=== PATIENT | female | born 1980 | race Caucasian/White ===

== ENCOUNTER 2019-07-26 21:36 | Inpatient (IN) | payer SELFPAY ==
[2019-07-26 21:51] VITALS: BMI 22.8
[2019-07-26 22:32] VITALS: BP 128/81; PULSE 72; RESP 18; TEMP 36.8; O2SAT 99
[2019-07-27 06:00] VITALS: BP 105/65; PULSE 76; RESP 21; TEMP 37; O2SAT 97
[2019-07-27] MEDS: acetaminophen 325 mg Tablet 650 MG PO ×2 (10:35→17:37)
[2019-07-27] MEDS: hyDROXYzine 25 mg Capsule 50 MG PO ×2 (11:16→15:19)
--- NOTE | 2019-07-27 11:18 | PC.NURSE ---
Addendum entered by Sammie Humphrey LPN 07/27/19 12:37: prn med effective no further c/o anxiety Original Note: PRN VISTARIL 50 MG GIVEN PO PER PT C/O ANXIETY PT STATED SHE WAS HAVING AN ANXIETY ATTACK AFTER TAKING A SHOWER. PACING UNIT BUT SMILING IN CONVERSATION WITH STAFF. WILL CONT TO MONITOR.
[2019-07-27 13:48] VITALS: BP 114/75; PULSE 81; RESP 16; TEMP 36.6; O2SAT 98
--- NOTE | 2019-07-27 15:11 | P.HP_ITS ---
Providers/Chief Complaint Admitting Physician: Josue Escobar MD Chief Complaint: SI, SUBSTANCE ABUSE HPI NPU History of Present Illness CARLOS BARCLAY is a 38 year old female who presented to the hospital from an outside emergency department reporting suicidal thoughts and history of addiction. She reports that her mental health issues started back when she was younger. She reports that since she was in about third grade she remembered having significant anxiety but she can really not identify the source. She reports that she never really got treatment mostly because her parents were not invested in her getting treatment. She reports that she started smoking cigarettes at 16, drinking alcohol at 17 and smoking marijuana at 17. She reports that by the time she was 17 she had basically tried everything and things were starting to get out of control but she went off to college. She reports that when she went to college she actually chilled out on her drug use and was able to be collegiate for a significant period of time. But it age 22 or so she had met her and she moved off with him to [place]. She reports that they moved back after 2 years because both of their grandparents got sick and they felt bad that they were not there to help. However when they got back they went to [place]. 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 She reports that since she has been back she had been doing somewhat better with her addiction as she was working and spending time with her dad. Then her dad about a year ago from cancer and she fell back into her old ways. She reports that she struggled with methamphetamine and that is been really tough because her also struggles with drugs and so they have really had a hard time kicking the habit. She reports that she has anxiety and significant depression. She reports that she has been on Effexor and Trintellix but then she went to the hospital in [place] a recently and a put her on Ativan and Theresa's. She reports that they also use Haldol to some degree. She reports that she had a provider that has been prescribing her Xanax and that she had been prescribed benzodiazepines as early as her teens due to her overwhelming anxiety. We discussed the risks benefits and alternatives of trying some other medications for anxiety and specifically identified the fact that long-term use of benzodiazepines can be challenging. And problematic. She reports that she had been getting the benzodiazepines from her current provider in the [facility] that person retired and so there is been some difficulty with transfer of care. Psychiatric history: As above she reports she has been hospitalized about 3 times mostly related to addiction as well. Substance abuse history: As above she reports that she has a couple cigarettes every now and then. She denies alcohol use, marijuana use, cocaine use or any other illicit drugs but currently reports struggling with methamphetamines. She has been in the rehab 1 time and denies having a DUI. Family history: She reports depression runs in her family likely on both sides. Addiction runs on her dad's side. She denies any suicide attempts or completions that she is aware of in her family. She denies personally having any suicide attempts. Developmental history: She reports that her mom's and delivery with her were within normal limits. She learned to walk and talk and met her developmental milestones on time. When she went to school she did not require speech therapy, learning support, emotional support or special education classes. Psychosocial history: Mother and father were together when she was born and stayed together until her father . She does have an older brother that shares the same to parents. She reports that her childhood was pretty good her dad was gone a lot but they had a great relationship. She denied emotional, physical or sexual abuse. She graduated from high school and had some college. She endorses being a heterosexual and her longest relationship is 20 years they have been for less than 20 years but they have been dating since she was in high school. She is been 1 time, she is never had children, she is never been in and she endorses being synagogue [place] as far as her yazidi affiliation. She reports her longest work history was probably [employer] for about 7 years. She currently lives in a trailer with her . Legal history: She denies ever being in long term or having any major legal issues. Meds NPU Allergies Allergy/AdvReac Type Severity Reaction Status Date / Time No Known Allergies Allergy Verified 07/26/19 22:59 Mental Status Exam MSE Comments: This is a well-nourished well-developed white female with adequate dress, grooming and eye contact. No abnormal movements except for mild psychomotor retardation. Cooperative with exam in mild distress. Speech was decreased rate and volume. Mood described as anxious, affect congruent. Thought process organized. Thought content: Patient denied any suicidal or homicidal ideation, there were no delusions reported or noted, she denied any auditory or visual hallucinations. Attention and concentration appeared intact and memory appeared reliable but none were formally tested. She is alert and oriented x3. Insight and judgment are limited. Vitals/I&O/Wt Last Vital Signs Temp 97.9 F 07/27/19 13:48 Pulse 81 07/27/19 13:48 Resp 16 07/27/19 13:48 BP 114/75 07/27/19 13:48 Pulse Ox 98 07/27/19 13:48 Weight last 48 hrs Weight 56.699 kg A&P Assessment and plan (1) Generalized anxiety disorder: This is a 38-year-old white female with a long history of anxiety and addiction who presents with a recent hospitalization where she was reportedly taken off of medications like Effexor and Trintellix and placed on Ativan and Haldol., Who presents endorsing overwhelming anxiety and some grief issues without effective medications reported. 1. Continue current medication. Will allow for Ativan as needed for the time being but will work on appropriate standing dose medications. 2. Anxiety encourage individual, group and milieu therapy. 3. Continue every 15 minute checks for safety. 4. Explore sober living aftercare options at the highest level of care she is willing to commit. Status: Acute Code(s): F41.1 - Generalized anxiety disorder (2) Methamphetamine dependence: Status: Acute Code(s): F15.20 - Other stimulant dependence, uncomplicated (3) Bereavement: Status: Acute Code(s): Z63.4 - Disappearance and of family member Involuntary Hold Information 96 Hour Hold: 96 Hour Involuntary Admission: Yes 96 Hour Hold Ending Date: 07/30/19 96 Hour Hold Ending Time: 21:51 Attestations NPU Medical Necessity Statement*: Inpatient hospitalization is medically necessary and the clinically appropriate intervention at this time. We will explore appropriate medications and initiate and titrate to effect. She will be in the hospital for over 2 midnights. Likely length of stay 3 to 5 days. 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
--- NOTE | 2019-07-27 15:21 | PC.NURSE ---
Addendum entered by Sammie Humphrey LPN 07/27/19 18:08: prn med effective although pt request anxiety med often but has been asleep in bed in room most of the day Original Note: PRN VISTARIL 50 MG GIVEN PO PER PT C/O ANXIETY. NO OUTWARD S/S OF ANXIETY NOTED
[2019-07-27] MEDS: LORazepam 1 mg Tablet PO (18:49)
--- NOTE | 2019-07-27 18:49 | PC.NURSE ---
PRN ATIVAN 1 MG GIVEN PO PER PT C/O STATED ANXIETY. VERY MED SEEKING, REQUESTING ANY AND ALL PRN MEDICATIONS SHE CAN HAVE ALL DAY LONG. PT IS SMILING WHILE TALKING TO NURSING STAFF, CHEERS LOUDLY WHEN GIVEN PRN ATIVAN. WILL CONT TO MONITOR.
[2019-07-27] MEDS: trazodone 50 mg Tablet PO (20:35)
[2019-07-27 22:00] VITALS: BP 111/75; PULSE 70; RESP 18; TEMP 36.9; O2SAT 98
[2019-07-28 06:00] VITALS: BP 113/75; PULSE 75; RESP 18; TEMP 36.8; O2SAT 98
[2019-07-28] MEDS: hyDROXYzine 25 mg Capsule 50 MG PO ×3 (06:40→20:45)
[2019-07-28] MEDS: acetaminophen 325 mg Tablet 650 MG PO ×3 (06:41→23:08)
[2019-07-28] MEDS: LORazepam 1 mg Tablet PO ×2 (09:20→17:23)
--- NOTE | 2019-07-28 09:20 | PC.NURSE ---
Addendum entered by Nancy Roman LPN 07/28/19 10:26: MEDICATION NOT EFFECTIVE. ASKING FOR MORE MEDICATION FOR ANXIETY. SEE NEXT NOTE. Original Note: PRN ATIVAN ATIVAN 1MG PO PER PT C/O ANXIETY. WILL CONTINUE TO MONITOR FOR MEDICATION EFFECTIVENESS.
--- NOTE | 2019-07-28 10:21 | PC.NURSE ---
PRN VISTARIL VISTARIL 50MG PO PER PT C/O ANXIETY. WILL CONTINUE TO MONITOR FOR MEDICATION EFFECTIVENESS.
--- NOTE | 2019-07-28 10:32 | P.PN_ITS ---
Subjective NPU Subjective: Interval history: Vannesa presents today reporting that she has not been in touch with her and needs to contact him to see how he is doing. She reports that that could impact where she is from the standpoint of choices for treatment and aftercare. At this point she endorses that her plan is to return to her current provider but she reports that she recently has a new doctor as her old doctor retired. We discussed the fact that long-term use of benzodiazepines is more and more frowned upon and that we would need to have some sense that that is the direction they would want to go before we would more or less force that option on her outpatient team. We discussed the risks benefits and alternatives of some other agents like BuSpar and Inderal. Additionally discussed Neurontin but some concerns exist secondary to the history of opiate problems and recent evidence that Neurontin and opiates are a bad mix. She understood and was open to a trial of Inderal but we agree that we need to work on an outpatient/post hospital treatment plan. Mental Status Exam MSE Comments: This is a well-nourished well-developed white female with adequate dress, grooming and eye contact. No abnormal movements except for mild psychomotor retardation. Cooperative with exam in no acute distress. Speech was normal rate and volume. Mood described as better, affect congruent. Thought process organized. Thought content: Patient denied any suicidal or homicidal ideation, there were no delusions reported or noted, she denied any auditory or visual hallucinations. Attention and concentration appeared intact and memory appeared reliable but none were formally tested. She is alert and oriented x3. Insight and judgment are limited. Vitals/I&O/Wt Last Vital Signs Temp 98.8 F 07/28/19 22:00 Pulse 84 07/28/19 22:00 Resp 19 H 07/28/19 22:00 BP 103/67 07/28/19 22:00 Pulse Ox 98 07/28/19 22:00 A&P Additional A&P Information This is a 38-year-old white female with a long history of anxiety and addiction who presents with a recent hospitalization where she was reportedly taken off of medications like Effexor and Trintellix and placed on Ativan and Haldol., Who presents endorsing overwhelming anxiety and some grief issues without effective medications reported. 1. Continue current medication. Try low dose inderal for anxiety. 2. Anxiety encourage individual, group and milieu therapy. 3. Continue every 15 minute checks for safety. 4. Explore sober living aftercare options at the highest level of care she is willing to commit. Involuntary Hold Information 96 Hour Hold: 96 Hour Involuntary Admission: Yes 96 Hour Hold Ending Date: 07/30/19 96 Hour Hold Ending Time: 21:51 Attestations NPU Medical Necessity Statement*: Inpatient hospitalization is medically necessary and the clinically appropriate intervention at this time. We will explore appropriate medications and initiate and titrate to effect. Likely length of stay 3 to 5 days. 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
--- NOTE | 2019-07-28 11:20 | PC.NURSE ---
PRN VISTARIL FOLLOW UP MEDICATION EFFECTIVE. NO S/S OF ANXIETY.
[2019-07-28 14:00] VITALS: BP 117/73; PULSE 92; RESP 18; TEMP 36.9; O2SAT 98
[2019-07-28] MEDS: trazodone 50 mg Tablet PO (20:43)
[2019-07-28 22:00] VITALS: BP 103/67; PULSE 84; RESP 19; TEMP 37.1; O2SAT 98
--- NOTE | 2019-07-28 23:13 | PC.NURSE ---
Patient behavior Patient comes to window stating we are keeping her from her Ativan. She has became very irritable then tearful and started splitting staff then stomped off and slammed her door.
[2019-07-28] MEDS: nicotine 2 mg Gum BUCCAL (23:17)
--- NOTE | 2019-07-29 01:53 | PC.NURSE ---
BEHAVIOR PT CONTINUES TO COME TO THE NURSES STATIONS REQUESTING MEDICATIONS. PT HAS BEEN SLEEPING, RESPIRATIONS EVEN AND UNLABORED. BP 120/79 PULSE 84. RESPIRATIONS 17. NO S/S OF ANXIETY. PT WAS ENCOURAGED TO USE COPING SKILLS AND ENCOURAGED GOING BACK TO SLEEP. WILL CONTINUE TO MONITOR.
--- NOTE | 2019-07-29 02:01 | PC.NURSE ---
Addendum entered by Aurelia Chase LPN 07/29/19 02:02: PT CONTINUES TO BE MED SEEKING. PT HAS COME TO THE NURSES STATION WINDOW REQUESTING MEDICATIONS. WILL CONTINUE TO MONITOR. Original Note: PRN VISTARIL 5 PT AT NURSES REQUESTING ANY MEDICATIONS SHE CAN GET. BP 126/80 PULSE 85 RESPIRATIONS 19. AFTER SEVERAL ATTEMPTS TO RE-DIRECT PT, PT WAS GIVEN VISTARIL 50 MG PO. WILL MONITOR FOR MEDICATION EFFECTIVENESS.
[2019-07-29 06:00] VITALS: BP 120/79; PULSE 84; RESP 17; TEMP 36.9; O2SAT 97
[2019-07-29] MEDS: acetaminophen 325 mg Tablet 650 MG PO ×2 (07:50→13:00)
[2019-07-29] MEDS: LORazepam 1 mg Tablet PO ×2 (08:02→14:13)
[2019-07-29] MEDS: propranolol 20 mg Tablet 10 MG PO ×2 (08:03→15:14)
[2019-07-29] MEDS: hyDROXYzine 25 mg Capsule 50 MG PO (09:51)
--- NOTE | 2019-07-29 11:45 | PC.NURSE ---
Patient has requested PRN anxiety meds this morning, complaining of anxiety and chest discomfort. Vital signs have been stable. Patient takes PRN meds as ordered.
[2019-07-29 14:00] VITALS: BP 115/74; PULSE 75; RESP 20; TEMP 37.1; O2SAT 98
[2019-07-29] MEDS: venlafaxine ER (24HR) 150 mg Capsule PO (14:12)
[2019-07-29 15:44] VITALS: BP 115/74; PULSE 75; RESP 20; TEMP 37.1; O2SAT 98
== END 2019-07-29 15:57 | disposition home or self-care (01) | DRG 880 ==
PROVIDERS: Admitting Provider Psychiatry & Neurology Psychiatry; Visit Provider Psychiatry & Neurology Psychiatry
DX: F41.1 Generalized anxiety disorder (principal); F15.20 Other stimulant dependence, uncomplicated; Z63.4 Disappearance and death of family member; F17.210 Nicotine dependence, cigarettes, uncomplicated
CPT/HCPCS: 12345